=== PATIENT | female | born 1975 | race Caucasian/White ===

== ENCOUNTER 2018-03-14 08:45 | Day surgery (SDC) | payer BC, SELFPAY ==
[2018-03-14] VITALS (7 sets, daily range): BP systolic 126–157; BP diastolic 75–95; PULSE 82–92; RESP 16–18; TEMP 36.2–36.9; O2SAT 93–99; BMI 46.3
[2018-03-14] MEDS: Cefazolin 2 GM in 0.9% Normal Saline 100 ML IV (10:48)
--- NOTE | 2018-03-14 10:54 | PCM.DC.ORTHO ---
Discharge Diet: No Restrictions Discharge Activity: Use Crutches - if necessary Weight Bearing Status: Weight bearing as tolerated Keep extremity elevated above heart level: Right Leg Call your doctor if your incision/area has: Continuous Slow Oozing, Sudden Increased Bleeding, Increased Pain/ Swelling, Increased Redness, Foul Smelling Discharge Call your doctor if you observe: Fever of 101 or Higher, Coldness, Increased Pain, Numbness or Tingling, Change in Color Cleanse incision/area with: Keep Dressing Clean & Dry - do not remove Allergies/Adverse Reactions: Allergies methylprednisolone [From Medrol] Allergy (Verified 03/07/18 14:08) Other RAPID HR, DIZZINESS, HOARNESS, RED & SPLOTCHY Medications to take at Discharge Cetirizine HCl [Zyrtec] 10 mg PO DAILY 03/07/18 Fluoxetine [Prozac] 40 mg PO DAILY 03/07/18 Pregabalin [Lyrica] 50 mg PO BID 03/07/18 Valsartan [Diovan] 80 mg PO QHS 03/07/18 Hydrocodone Bitart/Apap 5-325 [[place] 5/325] 1 - 2 tablet PO Q6H PRN PRN 7 Days #56 tablet 03/14/18 The following prescriptions were given: Hydrocodone Bitart/Apap 5-325 [[place] 5/325] 1 - 2 tablet PO Q6H PRN PRN 7 Days #56 tablet PRN Reason: Mild-Moderate (pain scale 1-5) Please Follow Up With: Anton Alfonso DO When: as scheduled
--- NOTE | 2018-03-14 10:59 | DCINST_ITS ---
Discharge Diet: No Restrictions Discharge Activity: Use Crutches - if necessary Weight Bearing Status: Weight bearing as tolerated Keep extremity elevated above heart level: Right Leg Call your doctor if your incision/area has: Continuous Slow Oozing, Sudden Increased Bleeding, Increased Pain/ Swelling, Increased Redness, Foul Smelling Discharge Call your doctor if you observe: Fever of 101 or Higher, Coldness, Increased Pain, Numbness or Tingling, Change in Color Cleanse incision/area with: Keep Dressing Clean & Dry - do not remove Allergies/Adverse Reactions: Allergies methylprednisolone [From Medrol] Allergy (Verified 03/07/18 14:08) Other RAPID HR, DIZZINESS, HOARNESS, RED & SPLOTCHY Medications to take at Discharge Cetirizine HCl [Zyrtec] 10 mg PO DAILY 03/07/18 Fluoxetine [Prozac] 40 mg PO DAILY 03/07/18 Pregabalin [Lyrica] 50 mg PO BID 03/07/18 Valsartan [Diovan] 80 mg PO QHS 03/07/18 Hydrocodone Bitart/Apap 5-325 [[place] 5/325] 1 - 2 tablet PO Q6H PRN PRN 7 Days # 56 tablet 03/14/18 The following prescriptions were given: Hydrocodone Bitart/Apap 5-325 [[place] 5/325] 1 - 2 tablet PO Q6H PRN PRN 7 Days # 56 tablet PRN Reason: Mild-Moderate (pain scale 1-5) Please Follow Up With: Anton Alfonso DO When: as scheduled
--- NOTE | 2018-03-14 12:02 | PCM.OPRPT ---
Report of Operation Date of Procedure: 03/14/18 Pre-Operative Diagnosis: Recurrent prepatellar cyst right knee Post-Operative Diagnosis: Recurrent prepatellar cyst right knee Surgery/Procedure Performed:: Excision of prepatellar ganglion cyst right knee with application of incisional wound VAC right knee Description of Surgical Findings:: Large prepatellar ganglion cyst Type of Anesthesia:: General Anesthesiologist: Adam Fernandez Special Medications: None Specimen's removed: Cyst Estimated Blood Loss (mL): 50 Fluids Replaced: See anesthesia report Description of Procedure: Surgical indications: Marilu had a prepatellar cyst that was removed by me back in September. She had almost immediate return of this fluctuant mass. MRI does confirm the presence of a recurrent cyst. This is causing her substantial discomfort Procedure description: Marilu was greeted in the preoperative area her right knee was marked with surgical marker. Preoperative antibiotics were administered she was then taken or [address] in stable condition. After adequate anesthesia was obtained and airway secured the right knee was prepped and draped in usual sterile fashion. Surgical times performed surgery was commenced. Patient's previous incision site was identified inferior to the inferior pole the patella. This was extended proximally and distally and immediately encountered a cyst essentially right below the dermal layer. This is large and estimated to be approximately 8 cm in diameter and 5 cm in depth. The cyst was decompressed and the contents of which were clear watery fluid. Once this was complete I then excised the entire capsule. This actually propagated medially and laterally and all the way down to the anterior aspect of the tibia and patellar tendon. I did not identify any rent in the capsule nor a puncture in the capsule. I did use an aqua Manus to assist with control of bleeding and I did deflate the tourniquet as she was having a substantial amount of venous congestion. This point of visually inspected the capsule and again did not identify any abnormality in the capsule and I did use aqua Lamar for bleeding control as well as I treated the capsule with this to hopefully seal off any type of small leak that may be causing the recurrence. Once this was complete I did perform a layered closure with #1 Vicryl followed by 2 Vicryl and then 3-0 nylon in the skin. I then cleansed the skin placed a skin prep around the wound and applied a olimpia negative pressure bandage system. This was sealed with the supplied Tegaderm around the perimeter of the bandage. An Robert wrap was then gently applied to the knee in order to protect the dressing as well as to hold the battery-operated olimpia system. This point anesthesia was reversed and patient was taken to recovery room in stable condition. Postoperatively I would like the patient to maintain her knee straight in position until the dressing can be removed. We will plan on maintaining this dressing for approximately 7 days. She was provided with the additional dressing which may be applied in my office if this 1 loses its seal or fails - Admit VTE Documentation VTE Present on Admission: Yes VTE Mechan Device Prophylaxis: SCD's, Thigh High KAREN Lawton VTE Pharm Prophylaxis ordered?: Yes
[2018-03-14] MEDS: HYDROcodone Bitartrate/Apap 5/325 Tablet PO (13:37)
== END 2018-03-14 14:32 | disposition home or self-care (01) ==
LOC: SDC 08:46 → AC 08:51
PROVIDERS: Visit Provider Orthopaedic Surgery
PROC: (CPT 27340; principal; 2018-03-14 10:20)
DX: M67.461 Ganglion, right knee (principal); M70.71 Other bursitis of hip, right hip; M17.11 Unilateral primary osteoarthritis, right knee; I10 Essential (primary) hypertension; F41.9 Anxiety disorder, unspecified; E66.9 Obesity, unspecified; Z68.42 Body mass index [BMI] 45.0-49.9, adult; Z79.899 Other long term (current) drug therapy
CPT/HCPCS: 01320; 27339; J7120; J2405

== ENCOUNTER → 2024-11-30 | Outpatient (CLI) | payer OTHER, SELFPAY ==
--- NOTE | 2024-11-30 17:30 | CT_ITS ---
STUDY: CT CERVICAL SPINE WITH CONTRAST REASON FOR EXAM: Female, 49 years old. NECK PAIN RADIATION DOSAGE (If Supplied By Facility): CTDIvol = ( 19.06 ) mGy, DLP = ( 369.94 ) mGycm TECHNIQUE: High resolution transaxial imaging was performed following intravenous administration of IV 100mL Isovue-370. Sagittal and coronal images were reconstructed. Individualized dose optimization techniques were used for this CT. COMPARISON: October 12, 2024 FINDINGS: Normal craniovertebral junction. Normal anterior atlantoaxial articulation. Normal odontoid process. Normal cervical lordosis. Normal vertebral bodies and posterior osseous elements. C2-3: Normal endplates. Normal disc height and morphology. Normal central canal and intervertebral neuroforamina. C3-4: Mild anterior endplate spurring. Narrowed disc space with minor endplate spurring. Normal central canal and intervertebral neuroforamina. C4-5: Normal endplates. Normal disc height and morphology. Normal central canal and intervertebral neuroforamina. C5-6: Postop change status post anterior cervical fusion with disc spacer placement. Normal central canal and intervertebral neuroforamina. C6-7: Postop change status post anterior cervical fusion and disc spacer placement. Normal central canal. Mild bilateral neural foraminal stenosis secondary to bony hypertrophy. There is deformity of the right cervical spine at C7 possibly on the basis of old trauma not changed since prior exam C7-T1: Normal endplates. Normal disc height and morphology. Normal central canal and intervertebral neuroforamina. Normal visualized soft tissue structures. CT/Spine Cervical WITH Contrast IMPRESSION: Spondylosis and postsurgical changes at C5-6 and C6-7. No acute fracture or other significant bony pathology Deformity of the right C7 screw consistent with old trauma unchanged since previous study Electronically Signed: Samuel Monteiro MD at 17:48 EST ,
[2024-11-30 18:01] LABS: CREATININE FINGERSTICK < 1.0 mg/dL (0.55-1.02); EGFR FINGERSTICK > 60.0000 mL/min (>60)
== END | disposition home or self-care (01) ==
LOC: CT 17:28
PROVIDERS: PCP Family Medicine; Referring Provider Clinical Nurse Specialist Adult Health; Visit Provider Clinical Nurse Specialist Adult Health
DX: M54.2 Cervicalgia (principal)
CPT/HCPCS: 72126; Q9967

== ENCOUNTER → 2025-01-15 | Outpatient (CLI) | payer OTHER, SELFPAY ==
--- NOTE | 2025-01-15 08:42 | MRI_ITS ---
PROCEDURE: SPINE CERVICAL (ROUTINE) REASON FOR EXAM: Pain. TECHNIQUE: Cervical spine MRI without intravenous gadolinium-based contrast. COMPARISON: CT of the cervical spine on November 30, 2024 FINDINGS: Vertebrae: Cervical vertebral body heights are preserved. Bone marrow signal is unremarkable. Patient is status post anterior cervical discectomy and fusion from C5 through C7. Alignment: Normal. No spondylolisthesis. Spinal Cord: Cervical spinal cord is of normal size and signal intensities. Structures at the foramen magnum are unremarkable. C2-3: Minimal central disc osteophyte complex without central canal or foraminal stenosis. C3-4: Minimal disc osteophyte complex without central canal or foraminal stenosis. C4-5: Mild disc osteophyte complex without central canal stenosis. Mild left foraminal stenosis.. C5-6: Disc osteophyte complex with mild flattening of the ventral thecal sac. Patent neural foramina. C6-7: Disc osteophyte complex with facet and uncovertebral hypertrophy. Mild left foraminal stenosis. C7-T1: Mild disc osteophyte complex without central canal or foraminal stenosis. MRI/Spine Cervical (Routine) IMPRESSION: MULTILEVEL DEGENERATIVE CHANGES IN THE LUMBAR SPINE WITH MILD LEFT FORAMINAL ST ENOSIS AT C4-C5 AND C6-C7. STATUS POST ANTERIOR CERVICAL DISCECTOMY AND FUSION FROM C5 THROUGH C7. Reading Location: [id number]
== END | disposition home or self-care (01) ==
LOC: MRI 15:36
PROVIDERS: PCP Family Medicine; Referring Provider Orthopaedic Surgery Orthopaedic Surgery of the Spine; Visit Provider Orthopaedic Surgery Orthopaedic Surgery of the Spine
DX: M54.2 Cervicalgia (principal)
CPT/HCPCS: 72141

== ENCOUNTER 2025-04-02 16:38 | Observation (INO) | payer MEDICARE, OTHER, SELFPAY ==
--- NOTE | 2025-03-27 08:56 | EKG12_ITS ---
Test Reason : PREOP Blood Pressure : */* mmHG Vent. Rate : 89 BPM Atrial Rate : 89 BPM P-R Int : 160 ms QRS Dur : 84 ms QT Int : 352 ms P-R-T Axes : 30 8 22 degrees QTcB Int : 428 ms Normal sinus rhythm Nonspecific T wave abnormality Abnormal ECG No previous ECGs available Confirmed by MART CHAWLA, TALIA ([id number]), assistant production editor THONY VALENTINE ([id number]) on 03/28/2025 1:14:12 PM Referred By: Tony Ignacio Confirmed By: TALIA CEVALLOS MD
[2025-03-27 09:58] LABS: Absolute Lymphocyte Count 1.05 X10^3/uL (0.83-4.51); Absolute Neutrophil Count 3.7 X10^3/uL (2.0-7.7); Basophil# 0.03 X10^3/uL; Basophil% 0.6 % (0-1); Eosinophil# 0.02 X10^3/uL; Eosinophils% 0.4 % (0-5); Hematocrit 36.7 % (37-47); Hemoglobin 12.8 g/dL (12.0-15.0); Lymphocyte # 1.05 X10^3/ul (0.83-4.51); Lymphocyte % 20.4 % (19-41); Mean Corp Hgb Conc 34.9 g/dL (32-36); Mean Corpuscular Volume 85.9 fL (81-99); Mean Platelet Vol. 8.4 fl (6.2-12.0); Monocyte# 0.35 X10^3/uL; Monocyte% 6.8 % (0-10); NRBC Flagged by Analyzer 0 % (0-5); Neutrophil # 3.69 X10^3/uL (2.7-7.7); Neutrophil % 71.6 % (47-70); Platelet Count 262 K/mm3 (150-450); RBC Distribution Width CV 11.7 % (11.6-14.6); RBC Distribution Width SD 36.8 fl (35.1-43.9); Red Blood Count 4.27 M/mm3 (4.2-5.4); White Blood Count 5.2 K/mm3 (4.4-11.0)
[2025-03-27 10:48] LABS: Hepatitis B Surface Antibody Nonreactive; Hepatitis C Antibody Nonreactive (Nonreactive)
[2025-03-27 11:04] LABS: EST Glomerular Filtration Rate 107 (>60); HIV Nonreactive (Nonreactive)
[2025-03-27 11:07] LABS: Anion Gap 14 (5-15); BUN 17 mg/dL (4-19); BUN/Creat Ratio 24.5 RATIO (10-20); Calcium,Total 9.7 mg/dL (7.6-11.0); Carbon Dioxide 23.3 mmol/L (21.0-32.0); Chloride 105 mmol/L (98-108); Creatinine, Serum 0.67 mg/dL (0.70-1.20); Glucose 97 mg/dL (70-99); Potassium 3.5 mmol/L (3.3-5.1); Sodium Level 142 mmol/L (133-145)
--- NOTE | 2025-03-27 16:19 | PAT.ANESEVAL ---
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 When Was Last Pacemaker Check QUESTION #4 FULL TEXT: You/Your Family Experience fever (hyperthermia) with Anesthesia Last Oral Intake Last Oral intake: Last Oral Intake NPO since Meds taken in AM with sips of water? 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 - office supervisor Female Yes 03/21/25 08:53 HX of Motion Sickness No 03/21/25 08:53 HX of N/V After Surgery No 03/21/25 08:53 Non-Smoker Yes 03/21/25 08:53 Duration of Surgery greater Yes 03/21/25 08:53 than 60 minutes Number of Risk Factors 3 03/21/25 08:53 PONV Score Moderate Risk 03/21/25 08:53 Height & Weight Height & Weight: Anesthesia: Height & Weight Height 4 ft 11 in 12/14/24 10:19 Respiratory Assessment Respiratory Assessment - office supervisor: Respiratory Tract Infection Hx - office supervisor Hx Respiratory Tract Infection No 03/21/25 08:53 STOP Sleep Apnea STOP Sleep Apnea - office supervisor: STOP Sleep Apnea - office supervisor Hx Hypertension No 03/21/25 08:53 Hx Sleep Apnea No 03/21/25 08:53 CPAP No 03/14/18 12:02 BIPAP Do you snore loudly (louder No 03/21/25 08:53 than talking or can be heard Do you often feel tired/ No 03/21/25 08:53 fatigued/ sleepy during daytime? Has anyone observed you stop No 03/21/25 08:53 breathing during sleep? STOP Results Negative 03/21/25 08:53 QUESTION #5 FULL TEXT : Do you snore loudly (louder than talking or can be heard through closed doors)? Tobacco Use History Tobacco Use History - office supervisor: Tobacco Use History - office supervisor Tobacco Use Smoking Status Never smoker 03/21/25 08:53 Hx Tobacco Use No 03/21/25 08:53 Years Smoking Packs Smoked per Day Smoking Cessation Date was within the last 15 years Hx Smoking Cessation Date Hx Smoking Cessation Counseling Hematologic Medial History Hematologic Hx - office supervisor: Hematologic Medical Hx - [place] Hx of Blood Transfusion Yes 03/21/25 08:53 Hx of Transfusion in last 3 No 03/21/25 08:53 Months Date of Last Transfusion (if within last 3 months) Ever experience any problems No 03/21/25 08:53 with transfusion(s)? Specify any problems Hx of Preganancy in last 3 No 03/21/25 08:53 Months Nurse Filling Out Transfusion [facility] 03/21/25 08:53 & Questions: Date: 03/21/25 03/21/25 08:53 Time: 09:00 03/21/25 08:53 Patient unable to answer at this time (ie. confused, unrespo /Reproduction History /Reproductive History - office supervisor: /Reproductive Hx- office supervisor Hx Now No 03/21/25 08:53 Gestational Age (in weeks): EDC: Hx Hx Para Hx Section SAB No 03/21/25 08:53 PFSH Medical History Post-menopausal Wears glasses Anxiety Non-smoker Injury of neck Irritable bowel syndrome Fibromyalgia Arthritis Degenerative disc disease Hypertension Home Medications ?Medication ?Instructions ?Recorded ?Last Taken ?Type cetirizine 10 mg tablet (Zyrtec) 10 mg PO DAILY ALLERGIES 03/07/18 03/13/18 History fluoxetine 20 mg capsule 40 mg PO DAILY MOOD 03/07/18 03/13/18 History dicyclomine 10 mg capsule 20 mg PO QDAY PAIN 12/14/24 Unknown History metformin 500 mg tablet 1,000 mg PO DAILY Weight 12/14/24 Unknown History semaglutide (weight loss) 1 mg/0.5 1 mg subcut QWEEK Weight loss 12/14/24 03/15/25 History mL subcutaneous pen injector Allergy/AdvReac Type Severity Reaction Status Date / Time methylprednisolone (From Allergy Other Verified 03/27/25 09:54 Medrol) Family History Mother Diabetes Father Colon cancer COPD (chronic obstructive pulmonary disease) Surgical History History of hernia surgery History of carpal tunnel release Fusion of lumbar spine Cervical vertebral fusion History of left knee replacement Social History Smoking Status: Never smoker alcohol intake: never substance use type: does not use additional social history: Does not use aspirin. Takes ibuprofen most days. Audit: Pertinent Findings Pertinent Findings EKG Perinent findings: March 27, 2025. Normal sinus rhythm. Nonspecific T wave abnormality. Recommendation Anesthesia Recommendation Anesthesia recommendation: OPTIMIZED for anesthesia
[2025-03-28 05:07] LABS: Hepatitis A AB, Total Negative (Negative)
[2025-04-02] VITALS (14 sets, daily range): BP systolic 123–162; BP diastolic 74–96; PULSE 91–110; RESP 12–18; TEMP 36.1–37.1; O2SAT 97–100; BMI 35.2
[2025-04-02] MEDS: Acetaminophen 500 MG Tablet 1000 MG PO (11:32)
[2025-04-02] MEDS: Magnesium 1 GM over 15 mins IV (11:32)
[2025-04-02] MEDS: Lactated Ringers 1,000 ML 15 ML IV ×2 (11:32→17:14)
--- NOTE | 2025-04-02 11:44 | PRE.ANES_ITS ---
ASA Classification* ASA Classification ASA Classification: 2 (anxiety, IBS, arthritis ) Assessment & Plan Anesthesia* Anesthesia Assessment Anesthesia Assessment: Discussed sedation and/or anesthesia options, risks, benefits, and alternatives with patient/parents/legal guardian/POA. Questions invited. The patient/parents/legal guardian/POA seems to understand and agrees to proceed with anesthesia plan. Reviewed the physical assessment, medical history, allergy history and patient home medications list prior to surgery/procedure/anesthetic and documented any changes. Performed airway and anesthesia risk assessments. Anesthesia Type Anesthesia Type: General History Source History Obtained from:: Patient and Chart Anesthesia Focused Assessment* Temperature: 98.0 F Pulse Rate: 91 Blood Pressure: 123/74 Respiratory Rate: 16 Pulse Ox: 99 Oxygen Delivery Method: Room Air Airway Assessment Mouth opens: >3 cm Mallampati Score: II Teeth Condition: Intact Neck Range of motion (ROM): Full ROM Focused Labs Anesthesia Preop lab: CBC WBC 5.2 K/mm3 (4.4-11.0) 03/27/25 08:50 03/27/25 RBC 4.27 M/mm3 (4.2-5.4) 03/27/25 08:50 03/27/25 Hgb 12.8 g/dL (12.0-15.0) 03/27/25 08:50 03/27/25 Hct 36.7 % (37-47) L 03/27/25 08:50 03/27/25 Plt Count 262 K/mm3 (150-450) 03/27/25 08:50 03/27/25 CHEMISTRY Potassium 3.5 mmol/L (3.3-5.1) 03/27/25 08:50 03/27/25 Sodium 142 mmol/L (133-145) 03/27/25 08:50 03/27/25 Magnesium 2.0 mg/dL (1.5-2.2) 03/27/25 08:50 03/27/25 BUN 17 mg/dL (4-19) 03/27/25 08:50 03/27/25 Creatinine 0.67 mg/dL (0.70-1.20) L 03/27/25 08:50 Glucose 97 mg/dL (70-99) 03/27/25 08:50 03/27/25 COAG Pre-Assessment Diagnosis/Proposed Procedure Planned Operative Procedure(s): ANTERIOR CEVICAL FUSION C3-C4, C4-C5, POSSIBLE REMOVAL OF HARDWARE Anesthesia History 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 When Was Last Pacemaker Check QUESTION #4 FULL TEXT: You/Your Family Experience fever (hyperthermia) with Anesthesia Last Oral Intake Last Oral intake: Last Oral Intake NPO since 00:00 04/02/25 11:19 Meds taken in AM with sips of No 04/02/25 11:19 water? 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 Female Yes 03/21/25 08:53 HX of Motion Sickness No 03/21/25 08:53 HX of N/V After Surgery No 03/21/25 08:53 Non-Smoker Yes 03/21/25 08:53 Duration of Surgery greater Yes 03/21/25 08:53 than 60 minutes Number of Risk Factors 3 03/21/25 08:53 PONV Score Moderate Risk 03/21/25 08:53 Height & Weight Height & Weight: Anesthesia: Height & Weight Height 4 ft 11 in 04/02/25 11:19 Weight: 79.197 kg 04/02/25 11:19 Body Mass Index (BMI) 35.2 04/02/25 11:19 Respiratory Assessment Respiratory Assessment - securities lending trader: Respiratory Tract Infection Hx - securities lending trader Hx Respiratory Tract Infection No 03/21/25 08:53 STOP Sleep Apnea STOP Sleep Apnea - securities lending trader: STOP Sleep Apnea - securities lending trader Hx Hypertension No 03/21/25 08:53 Hx Sleep Apnea No 03/21/25 08:53 CPAP No 03/14/18 12:02 BIPAP Do you snore loudly (louder No 03/21/25 08:53 than talking or can be heard Do you often feel tired/ No 03/21/25 08:53 fatigued/ sleepy during daytime? Has anyone observed you stop No 03/21/25 08:53 breathing during sleep? STOP Results Negative 03/21/25 08:53 QUESTION #5 FULL TEXT : Do you snore loudly (louder than talking or can be heard through closed doors)? 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 Specify any problems Hx of Preganancy in last 3 No 03/21/25 08:53 Months Nurse Filling Out Transfusion [place] 03/21/25 08:53 & Questions: Date: 03/21/25 03/21/25 08:53 Time: 09:00 03/21/25 08:53 Patient unable to answer at this time (ie. confused, unrespo /Reproduction History /Reproductive History - securities lending trader: /Reproductive Hx- securities lending trader Hx Now No 03/21/25 08:53 Gestational Age (in weeks): EDC: Hx Hx Para Hx Section SAB No 03/21/25 08:53 Active Medications Active Medications: Current Medications Generic Name Dose Route Start Last Admin Trade Name Freq PRN Reason Stop Dose Admin Acetaminophen 1,000 mg 04/02/25 13:15 04/02/25 11:32 Acetaminophen 500 Mg Tablet PO 04/02/25 13:16 1,000 mg PREOP ONE Administration Cefazolin Sodium 2 gm/ Sodium 110 mls @ 150 mls/hr 04/02/25 13:15 Chloride IV 04/02/25 13:58 INTRAOP ONE Tranexamic Acid 1,000 mg/ 110 mls @ 440 mls/hr 04/02/25 13:15 Sodium Chloride IV 04/02/25 13:29 X1 ONE Tranexamic Acid 1,000 mg/ 110 mls @ 440 mls/hr 04/02/25 13:15 Sodium Chloride IV 04/02/25 13:29 X1 ONE Magnesium Sulfate 1 gm/ 102 mls @ 408 mls/hr 04/02/25 13:15 04/02/25 11:32 Dextrose IV 04/02/25 13:29 408 mls/hr INTRAOP ONE Administration Lactated Ringer's 1,000 mls @ 15 mls/hr 04/02/25 11:15 04/02/25 11:32 IV 15 mls/hr .Q48H HERMINIA Administration Insulin Human Lispro 1 - 6 unit 04/02/25 13:15 Insulin Lispro 100 Unit/Ml Insuln.Pen SC 04/02/25 18:00 Q4H PRN PRN BG>/= 180, SEE PROTOCOL Protocol PFSH Medical History Post-menopausal Wears glasses Anxiety Non-smoker Injury of neck Irritable bowel syndrome Fibromyalgia Arthritis Degenerative disc disease Hypertension Home Medications ?Medication ?Instructions ?Recorded ?Last Taken ?Type cetirizine 10 mg tablet (Zyrtec) 10 mg PO DAILY ALLERG IES 03/07/18 03/13/18 History fluoxetine 20 mg capsule 40 mg PO DAILY MOOD 03/07/18 03/13/18 History dicyclomine 10 mg capsule 20 mg PO QDAY PAIN 12/14/24 Unknown History metformin 500 mg tablet 1,000 mg PO DAILY Weight Unknown History semaglutide (weight loss) 1 mg/0.5 1 mg subcut QWEEK W eight loss 12/14/24 03/15/25 History mL subcutaneous pen injector Allergy/AdvReac Type Severity Reaction Status Date / Time methylprednisolone (From Allergy Other Verified 04/02/25 11:17 Medrol) Family History Mother Diabetes Father Colon cancer COPD (chronic obstructive pulmonary disease) Surgical History History of hernia surgery History of carpal tunnel release Fusion of lumbar spine Cervical vertebral fusion History of left knee replacement Social History Smoking Status: Never smoker alcohol intake: never substance use type: does not use additional social history: Does not use aspirin. Takes ibuprofen most days. Review of Systems (Anesthesia) ROS Narrative System reviewed and no additional complaints, except as documented.
[2025-04-02 11:54] LABS: Bedside Glucose 77 mg/dL (74-106)
--- NOTE | 2025-04-02 13:17 | PCM.HP.BLA ---
History and Physical Date of Admission: 04/02/25 MR#: [id number] Acct: [id number] Name: DEBBI MCCONNELL Rep #: [id number] : 1975 Provider: Dr. Tony Ignacio MD Age/Sex: 50/F Location: [facility] [place].[facility] Status: Signed Intake Vital Signs 12/14/2509:19 Height 4 ft 11 in Intake Visit Reasons: cervical spine Chief Complaint: pre-op Allergies methylprednisolone (From Medrol) Allergy (Verified 03/27/25 09:54) Other Medications ?Medication ?Instructions ?Recorded ?Confirmed ?Type cetirizine 10 mg tablet (Zyrtec) 10 mg PO DAILY ALLERGIES 03/07/18 03/27/25 History fluoxetine 20 mg capsule 40 mg PO DAILY MOOD 03/07/18 03/27/25 History dicyclomine 10 mg capsule 20 mg PO QDAY PAIN 12/14/24 03/27/25 History metformin 500 mg tablet 1,000 mg PO DAILY Weight 12/14/24 03/27/25 History semaglutide (weight loss) 1 mg/0.5 1 mg subcut QWEEK Weight loss 12/14/24 03/27/25 History mL subcutaneous pen injector [facility] Medical History Post-menopausal Wears glasses Anxiety Non-smoker Injury of neck Irritable bowel syndrome Fibromyalgia Arthritis Degenerative disc disease Hypertension Surgical History History of hernia surgery History of carpal tunnel release Fusion of lumbar spine Cervical vertebral fusion History of left knee replacement Family History Mother DiabetesFather Colon cancer COPD (chronic obstructive pulmonary disease) Social History Smoking Status: Never smoker alcohol intake: never substance use type: does not use additional social history: Does not use aspirin. Takes ibuprofen most days. HPI cervical spine Details: This documentation accurately reflects the service provided and the decisions made by me, Dr. Tony Ignacio MD 03/27/25 0949. Part of today?s visit was documented by Mayra LAMAR, acting as scribe. DEBBI MCCONNELL is a 50 year old F here today for pre-op cervical spine, dos: 04/02/25. She continues to have neck pain with bilateral upper extremity radiation. Her pain along the right trapezius and shoulder has increased since last seen by me. 02/16/25: DEBBI MCCONNELL is a 50 year old F here today for cervical spine follow-up. Patient is here today wanting to talk about next steps for the cervical spine pain she is dealing with. Patient denies any recent injections to the cervical spine or the shoulder that has been bothering her. She states she has had injections several times in the past in other body parts and they really never beneficial to her and she does not wish to proceed with those. She states the cervical spine pain has gotten a little bit worse. She states she is having an increase in numbness in her left arm.. She states this goes all the way down her arm and it is an everyday occurrence at this point. She denies any change in the left shoulder pain that was bothering her. She states she is starting to get more pain into the right shoulder now. She has not been to physical therapy. The right pain into the shoulder is only on the top of the shoulder, she denies any pain going down into the arm. She denies any trouble with swallowing or speech after her prior cervical spine surgeries. Non-diabetic, no heart/lung problems. She had a lumbar spine injection with Dr. Shen in September 2024. Been quite a while since she has done physical therapy. She occasionally notices some issues with balance. No history of stroke. 01/25/2025: DEBBI MCCONNELL is a 50 year old F here today for MRI Cervical Spine follow-up. Reports no changes from previous except pain now across b/l shoulder starting about a week from last visit. Rates pain 5 out of ten today. 12/14/24: neck pain. Hx cervical fusion ~2014 through [facility]. Fell in 08/2024. Increased neck pain 09/2024. Cervical spine CT performed at [facility] 11/30/24. Neck pain radiated to left shoulder, arm and hand. Pain recently radiating from neck to right shoulder. Occ tingling in fingers in left hand. Left arm and hand weakness. Received neck injection 09/[address] Shen, ineffective. Dr. Shen continues to follow. No recent PT. Heavy lifting or positioning could exacerbate pain. Ice, tylenol, and ibuprofen helpful short term. Received disability for back problems. Major balance problems prior to surgery. After surgery neck pain, headaches and balance problems improved. Followed-up regularly after surgery. No problems until fall 2023, 09/23/2024 or so. Denies hitting head/neck. Whole right side painful. Starting to get pain on the right. Pain starts in the neck, top of shoulder and down the arm. Pain into middle fingers. RHD. Weakness in the left hand, dropping items. Does not work. Denies trouble with writing, typing in the right hand. Increase balance problems within the last couple weeks. Non-diabetic, no blood thinners, denies stroke. No recent MRI. Denies weakness in the legs. Another surgery after the fusion, about a few years, that went in the posterior cervical spine to clean out but patient does not remember what the surgery was or what exactly it was for. Cannot remember her symptoms she was having at the time. Ortho Exam General General: Yes no acute distress Neurologic: Yes alert and Yes oriented x3 Psychologic: Yes reasonable and appropriate Spine SPINE TESTING CERVICAL THORACIC LUMBAR Musculoskeletal Strength 0=absent - 5=normal Details: Exam of the neck shows right-sided ACDF incision well-healed. There is also an apparent right sided transverse posterior cervical incision of unknown surgery. She says that the surgery was done a few years after the ACDF surgery. Neurologic valuation of upper extremity shows grade 4 power in the left wrist extension elbow flexion and shoulder abduction. Aureliano is positive on the left. Romberg's is positive. Tandem gait shows mild imbalance. There is no hyperreflexia lower extremities. Coding Level of Care Code Off vis,est,level 4 Diagnoses S/P cervical spinal fusion Z98.1 Acute pain of left shoulder M25.512 Chronicity: acute Cervical myelopathy with cervical radiculopathy G95.9; M54.12 Time Spent (min) 35 Assessment and Plan Assessment and Plan (1) S/P cervical spinal fusion: Status: Acute (2) Left shoulder pain: Status: Acute Qualifiers: Chronicity: acute Qualified Code(s): M25.512 - Pain in left shoulder (3) Cervical myelopathy with cervical radiculopathy: Status: Acute Plan Reviewed x-rays and recent CT of cervical spine, I also reviewed dynamic x-rays done today in the clinic. These show C5-7 ACDF with C7 screw fracture which is intraosseous and not causing any instability on dynamic views. CT scan confirms good fusion at C5-6, and possible fibrous fusion or pseudoarthrosis at C6-7. No obvious fractures. Unclear as to what surgery was done posteriorly, but most likely was right C6-7 laminoforaminotomy. MRI shows adjacent segment degeneration at C3-4 and C4-5. C3-4 shows right foraminal stenosis and C4-5 shows left foraminal stenosis. No significant cord compression. Explained to her the imaging findings in detail. Patient has developed hyperreflexia and radicular pain arising from the cervical spine suggestive of cervical myeloradiculopathy. She however does not have any significant cord compression on the new MRI, suggesting that this are residual myelopathic symptoms from previous surgery. She does however significant radiculopathy from C3-4 and C4-5 disc degeneration and foraminal stenosis. She also has significant left shoulder pain with range of motion. Explained to patient that if she were to proceed with another cervical spine surgical procedure there will typically be an increase in swallowing and speech issues. Recommend patient see an ENT doctor to make sure her vocal cords are moving equally to help decide side of approach. Since she is having more of a nerve root pressure rather than spinal cord pressure it is going to be more beneficial to go in from the front of the cervical spine rather than the back. We will address the top 2 levels with the surgical procedure. Spoke to patient about the pros, cons, risks and benefits of the surgical procedure. Postoperative restrictions were discussed. Explained that the balance issues will not change since she does not have any spinal cord pressure. Surgery will be C3-5 ACDF with possible removal of hardware. Risks include but are not limited to infection, bleeding, injury to nerves and vessels, hematoma formation, need for further surgery, dysphagia, dysphonia, recurrent laryngeal nerve injury, Herve syndrome, persistent dysphagia, persistent pain, persistent weakness and numbness, spinal cord injury, nerve root injury, DVT, pulm embolism, pneumonia, atelectasis, hardware failure, pseudoarthrosis, adjacent segment degeneration. Patient understands and agrees to proceed with surgery. Consent was signed.
--- NOTE | 2025-04-02 13:55 | RAD_ITS ---
PROCEDURE: CERV SPINE 2 OR 3 VIEWS 04/02/2025 REASON FOR EXAM: ANTERIOR CERVICAL DISC FUSION, C3-4, C4-5 TECHNIQUE: Fluoroscopy with 7 spot images COMPARISON: 12/14/2024 FINDINGS: Fluoroscopy time 10.9 seconds Cumulative dose 1.29 mGy C3-4 and C4-5 intervertebral disc spacers with anterior plate and screws placed C3 and C5 appears anatomic. The left-sided screw at C5 previous hardware has been removed. Anterior cervical disc fusion C5 through C7. May refer to operative report for further detail. RAD/Cerv Spine 2 or 3 Views IMPRESSION: Fluoroscopy during anterior cervical disc fusion with intervertebral disc space rs as above. Reading Location: [id number]
[2025-04-02] MEDS: Cefazolin 2 GM in 0.9% Normal Saline (100mL Bag) 100 ML IV ×2 (14:08→21:49)
[2025-04-02] MEDS: TRANEXAMIC ACID 1,000 MG in 0.9% Normal Saline (100mL Bag) 100 ML 440 MG IV ×2 (14:13→16:11)
--- NOTE | 2025-04-02 16:45 | PCM.OPRPT ---
Procedures Musculoskeletal [id number]-[id number]: Other Procedure See Report Operative Report (Standard) Operative Information Date of Procedure: 04/02/25 Pre-Operative Diagnosis: C3-5 disc degeneration, radiculopathy, prior C5-7 ACDF Post-Operative Diagnosis: Same Surgery/Procedure Performed: C3-5 ACDF, partial removal of previous hardware predictive maintenance technician: Yes Seafood Team Member: Joann Damon Tasks completed by cutting table operator first: Closing, Removing tissue, Implanting device, Hemostasis: Electrocautery and Retracting Type of Anesthesia: General RN Documented Start/Stop Times: Operation Date: 04/02/25 13:15 Case Time Into Pre-Op 04/02/25 11:03 Out of Pre-Op 04/02/25 13:45 Anesthesia Start 04/02/25 13:47 Into Room 04/02/25 13:47 Procedure Start 04/02/25 14:17 Procedure End 04/02/25 16:30 Anesthesia End 04/02/25 16:45 Out of Room 04/02/25 16:45 Procedure Start Time: 14:17 Procedure Stop Time: 16:30 Select all DRAINS/GRAFTS/IMPLANTS that apply: Drains Drain details: [place] , Graft Graft details: Structural allograft cortical cancellous strut, DBX and Implanted device Implanted device details: Medtronic [place] Elite plate instrumentation Estimated Blood Loss: 50 cc Specimen collected: No Description of surgery: Preoperative diagnosis: C3-5 disc degeneration with foraminal stenosis, radiculopathy, prior C5-7 ACDF Postoperative diagnosis: Same Name of procedure: C3-5 anterior cervical discectomy and fusion with plate instrumentation - Anterior cervical fusion C3-4, CPT code 40355 - Anterior plate instrumentation C3-5, CPT code 91600/59 - Anterior cervical fusion C4-5, CPT code 25908/51 -Partial removal of previous hardware, CPT code 08187, modifier 52 - C3-4 structural allograft bone with DBX, CPT code 80239 - C4-5 structural allograft bone with DBX, CPT code 89779 Attending surgeon: Tony Ignacio M.D. Anesthesia: Gen. endotracheal Estimated blood loss: 50 mL Complications: None Instrumentation used: Medtronic [place] Elite plate, LASR corticocancellous block Indications: The patient is a pleasant 50-year-old lady who presented with neck pain, bilateral upper extremity radiating pain, weakness. MRI showed adjacent segment degeneration at C3-4 C4-5 with foraminal stenosis, prior C5-7 ACDF. After prolonged course of nonsurgical treatment, the patient requested surgical treatment. All risks and benefits of the procedure were explained to the patient. The risks include but are not limited to infection, bleeding, injury to nerves and vessels, vertebral artery injury, spinal cord injury, paralysis, vocal cord paralysis, injury to esophagus, pseudoarthrosis, need for further procedures, adjacent segment degeneration. Procedure: The patient was identified in the preoperative suite using unique patient identifiers. Skin was marked consent was taken and all questions were answered. The patient was then brought back to the operative room and a timeout was performed. General endotracheal anesthesia was given. Intraoperative neuro monitoring leads were applied. The patient was carefully positioned supine on a regular OR table. A lateral view with a C-arm was done to identify the level and to define the incision. The anterior neck was then prepped and draped in the usual fashion. A final timeout was then performed. A transverse skin incision was taken to the left of midline. Subcutaneous tissue was then divided with Bovie. Platysma was identified and cut along the incision with scissors. The fascial interval between the sternocleidomastoid and the larynx was developed. Omohyoid was identified and retracted. The esophagus with the larynx was retracted medially to reach the prevertebral fascia. Significant scarring in front of the previous plate was observed. Upper screws of the previous plate were exposed. Left C5 screw from the previous plate was removed and Baltimore Pin Was Placed. Decision was made to not remove the entire plate, as there was adequate C5 vertebral body available for a new plate above. Longus coli muscle was elevated on both sides at and above and below C3-5 discs. Self-retaining retractors were then placed. A long handle knife was then used to perform annulotomy at C4-5. Disc fragments were removed with the pituitary. Baltimore pins were placed in C4 and C5 for disc distraction. Curettes and bur was utilized to remove cartilage from the endplates. Discectomy was performed laterally up to the uncovertebral joints. Posterior osteophytes were thinned down with the bur and adequate decompression in the central and foraminal areas were performed and PLL was thinned out. Once the disc space was prepared, trials of various sizes were utilized. Thorough irrigation was given. 6 mm LASR cortical cancellous allograft bone large footprint was then fashioned in such a way that concavities were burred out inferiorly and superiorly and half cc of DBX (demineralized bone matrix) was squeezed into the cancellous portion. The graft was then inserted into the C4-5 disc space. The retractors were then repositioned and the procedure was repeated for C3-4 discs with complete discectomy. Graft size was 6 mm at with large footprint at C3-4. The grafts were found to be in good apposition with good pullout strength. A 37 mm Medtronic [place] Elite plate was then fixed to C3-5 with 14 mm screws. The plate was positioned and fixed just above the previous C5-7 plate. A lateral x-ray was then taken to check the length of the screws. Both AP and lateral x-rays showed good positioning of plate and screws. The locking mechanism over the screw heads was then turned. Thorough irrigation was again given. Hemostasis was achieved. A [place] drain was then inserted. Closure was done with 3-0 Vicryl for the platysma and subcutaneous tissue layers and 4-0 Monocryl for the skin. Closure was done around the drain. Steri-Strips were applied and dressing was done with 4 x 4 gauze and Tegaderm. A cervical collar was then applied. The patient was then woken up from anesthesia extubated and taken to PACU in stable condition. From here, the patient will be transitioned to the floor. Intraoperative neuro monitoring was performed throughout this procedure. Motor evoked potentials were run periodically. All potentials remained at baseline throughout the procedure. I was present for the entire surgery and performed the surgery myself. Automatic Chief Joann Damon PA-C. My physician hospital aides and assistants teacher was a vital part of this case. They were important in appropriate retraction during the case, and protection of soft tissues during the procedure. Their intimate knowledge of the case and my steps aided in safe and expedient completion of the procedure as well as appropriate position of the patient during the surgery. They were also vital in assisting with closure under my direct supervision. Surgical Findings: See operative note Complications Complications: No
--- NOTE | 2025-04-02 18:33 | PCM.PN.HOSP ---
Reason for Visit Reason for Visit: Diagnoses Encounter for other preprocedural examination (04/02/25) Subjective Subjective Pt is a 50y/o female w/ hx of IBS, cervical spinal fusion and anxiety presented to [facility] ED for C3 through 5 ACDF and partial removal of previous hardware with Dr. Ignacio. Hospitalist consulted for postoperative medical management. Patient evaluated postoperatively, she reports she is sore but has no other acute or focal complaints Objective Data Objective Data Vital Signs: Vital Signs Temp Pulse Resp BP Pulse Ox O2 Del Method O2 Flow Rate 98.4 F 102 H 16 147/85 H 100 Nasal Cannula 4 04/02/25 18:26 04/02/25 18:26 04/02/25 18:26 04/02/25 18:26 04/02/25 18:26 04/02/25 18:26 04/02/25 18:26 Oxygen Flow Rate (L/min) 4 Oxygen Delivery Method Nasal Cannula Weight: 79.197 kg Body Mass Index (BMI) 35.2 Intake & Output: Intake and Output for Last 24 Hours 03/31/25 04/01/25 04/02/25 23:59 23:59 23:59 Intake Total 2220 / 2220 Balance 2220 / 2220 Lab / Micro Data 03/27/25 08:50 03/27/25 08:50 Labs: Laboratory Results - last 24 hr 04/02/25 11:27: POC Glucose 77 Micro: Microbiology 03/27/25 08:50 Swab (Method) Nasal Screen MRSA/MSSA - Final Physical Exam Narrative General: Alert, oriented, no apparent distress HEENT: Atraumatic, normocephalic Eyes: extraocular movements grossly intact Neck: Supple Respiratory: normal respiratory effort Cardiovascular: Regular rate and rhythm GI: nondistended Extremities: Moving extremities in bed Neuro: No overt focal neurological deficits but patient is in c-collar Psych: Cooperative Assessment & Plan Assessment/Plan (1) Cervical myelopathy with cervical radiculopathy: PLAN: Plan # Anxiety -Continue home medications #Obesity - On daily metformin, will hold postoperatively while admitted, can resume on discharge # 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 Ignacio 04/02/25 - Postoperative/pain management per primary -PT/OT #DVT ppx: Timing and agent at discretion of primary Alisia Madison MD Time spent in the patient's overall evaluation, decision-making process, review of diagnostic data, adjustment of management, discussion with other providers, nursing and ancillary staff involved in patient's care documentation,13 Minutes Charges/Coding Visit Charges Office Visits / Consults: [id number] OV L2 Est 10min
[2025-04-02] MEDS: Ensure Surgery 237 ML LIQUID PO (18:40)
--- NOTE | 2025-04-02 18:48 | PCM.POST.ANE ---
Anesthesia: Postop Eval I Current Vital Signs Temperature: 97.5 F Pulse Rate: 96 Blood Pressure: 145/94 Respiratory Rate: 18 Pulse Ox: 100 Oxygen Delivery Method: Room Air Assessment Airway patent: Yes Spontaneous unlabored respirations: Yes Mental status: Awake nausea: No Vomiting: No Anesthesia Complication: No Fluid Hydration Crystalloid volume administer (ml): 1,000 (see anes record) Total IV fluid infused: 1,000 Progress Note Anesthesia document: Postop Eval 1 completed: Yes
--- NOTE | 2025-04-02 18:50 | PCM.POSTANE2 ---
Anesthesia Postop Eval I Sum Postop Eval Completion status Anesthesia document: Postop Eval 1 completed: Yes Anesthesia Postop Eval I Summary Anesthesia Postop Eval I Summary: Anesthesia Postop Eval I: Assessment Summary Airway patent Yes 04/02/25 18:50 Spontaneous unlabored Yes 04/02/25 18:50 respirations Mental status Awake 04/02/25 18:50 nausea No 04/02/25 18:50 Vomiting No 04/02/25 18:50 Anesthesia Postop Eval I: Fluid Summary Crystalloid volume administer 1,000 - see anes 04/02/25 18:50 (ml) record Colloids volume administered ( ml) Blood Product volume administered (ml) Total IV fluid infused 1,000 04/02/25 18:50 Anesthesia Postop Eval I: Summary Notes Anesthesia Complication No 04/02/25 18:50 Anesthesia Complication Comment: Post-operative progress note Anesthesia: Postop Eval II Evaluation Mental status: Awake Pain Level: 0 nausea: No Vomiting: No Complications Anesthesia Complication: No
[2025-04-02] MEDS: Methocarbamol 500 MG Tablet 1000 MG PO (20:21)
[2025-04-02] MEDS: dexAMETHasone 4 MG/ML Vial IV (20:24)
[2025-04-02] MEDS: Morphine 2 MG/ML Syringe IV (21:53)
[2025-04-03 00:27] VITALS: BP 139/91; PULSE 94; RESP 16; TEMP 37.1; O2SAT 97
[2025-04-03] MEDS: HYDROcodone Bitartrate/Apap 5/325 Tablet PO ×2 (01:42→08:45)
[2025-04-03] MEDS: Methocarbamol 500 MG Tablet 1000 MG PO ×3 (02:12→13:50)
[2025-04-03] MEDS: dexAMETHasone 4 MG/ML Vial IV ×3 (02:17→13:50)
[2025-04-03 02:41] VITALS: BP 139/91; PULSE 94; RESP 16; TEMP 37.1; O2SAT 97
--- NOTE | 2025-04-03 05:16 | RAD_ITS ---
PROCEDURE: CERV SPINE 2 OR 3 VIEWS 04/03/2025 REASON FOR EXAM: S/P CERVICAL FUSION TECHNIQUE: 2 views of the cervical spine. COMPARISON: Cervical spine x-ray dated 10/12/2024. FINDINGS: Status post recent C3 through C5 anterior cervical disc fusion with intervertebral disc spacers. Anatomic alignment. Stable hardware seen extending from C5-C7. Surgical drain the remains within cervical spine. Cervical collar is also present. Normal cervical lordosis. No fracture or dislocation. RAD/Cerv Spine 2 or 3 Views IMPRESSION: Status post ACDF. Anatomic alignment. Reading Location: [id number]
[2025-04-03] MEDS: Cefazolin 2 GM in 0.9% Normal Saline (100mL Bag) 100 ML IV (05:49)
[2025-04-03] MEDS: 0.9% Saline Lock 10 ML Syringe IV ×2 (05:50→13:52)
[2025-04-03 05:56] LABS: Hematocrit 35.6 % (37-47); Hemoglobin 12.6 g/dL (12.0-15.0); Mean Corp Hgb Conc 35.4 g/dL (32-36); Mean Corpuscular Volume 84.8 fL (81-99); Mean Platelet Vol. 8.1 fl (6.2-12.0); Platelet Count 277 K/mm3 (150-450); RBC Distribution Width CV 11.6 % (11.6-14.6); RBC Distribution Width SD 35.2 fl (35.1-43.9); White Blood Count 9.5 K/mm3 (4.4-11.0)
[2025-04-03 06:17] LABS: Scan Indicated on CBC? Y/N NO
[2025-04-03 06:28] LABS: Anion Gap 12 (5-15); BUN 11 mg/dL (4-19); BUN/Creat Ratio 18.3 RATIO (10-20); Calcium,Total 9.2 mg/dL (7.6-11.0); Carbon Dioxide 23.5 mmol/L (21.0-32.0); Chloride 104 mmol/L (98-108); Creatinine, Serum 0.57 mg/dL (0.70-1.20); EST Glomerular Filtration Rate 109 (>60); Glucose 137 mg/dL (70-99); Potassium 4.4 mmol/L (3.3-5.1); Sodium Level 139 mmol/L (133-145)
[2025-04-03 07:00] VITALS: O2SAT 93
[2025-04-03] MEDS: Senna/Docusate Sodium 1 Tablet 2 TABLET PO (08:45)
[2025-04-03] MEDS: Meloxicam 15 MG Tablet PO (08:45)
[2025-04-03] MEDS: Loratadine 10 MG Tablet PO (08:45)
[2025-04-03] MEDS: Fluoxetine HCl 40 MG CAPSULE PO (08:45)
[2025-04-03 09:37] VITALS: BP 134/87; PULSE 101; RESP 18; TEMP 36.7; O2SAT 100
[2025-04-03 10:09] VITALS: O2SAT 100
--- NOTE | 2025-04-03 11:48 | CASEMGMT ---
CRISTIANE RODRIGUEZ Assessment Face to Face with patient for initial transition planning/care coordination assessment. CRISTIANE RODRIGUEZ introduced self and role at [facility], pt voices understanding. Pt is A&Ox4 and is resting comfortably in the chair and is calm. Pt's at bedside. Care providers, pharmacy, and demographics verified. Admitting dx: Cervical disc Fusion LACE Strata: 1 PCP: Cate Genao Specialists: Mateus (Ortho), Ac (PM) Preferred Pharmacy: [facility] Insurance: [employer] Prescription Benefit: Yes LNOK: Juan (H) Living Arrangements: Pt lives with her , adult daughter, and 3 month old GD in a 2 story home with a basement with a FFSU and 3 steps to enter with bilateral handrails ADLs/IADLs: Independent. 6-Click score is 24. Pt was cleared by PT, see notes. Transportation: Self, . Denies concerns DME: C-Collar, FWW, Cane, Shower chair, grab bars. HHC/SNF: Denies hx or needs. Pt states that she has been to OP therapy through [place] in the past Pt?s goal: Home Plan: Home with pt's SO and to follow up with Dr. Ignacio on 04/17 as scheduled and potentially start OP therapy subsequently as warranted. Pt states that she feels safe with this plan and denies further questions, concerns, or DC needs. Report given to DAMION SAUER CM. Ginger Ayala RN, CM
--- NOTE | 2025-04-03 13:49 | PN.HOSP_ITS ---
Reason for Visit Reason for Visit: Diagnoses Disease of spinal cord, unspecified (04/02/25) Radiculopathy, cervical region (04/02/25) Encounter for other preprocedural examination (04/02/25) Subjective Subjective Patient up walking around room, patient reports overall feeling well with no acute complaints Objective Data Objective Data Vital Signs: Vital Signs Temp Pulse Resp BP Pulse Ox O2 Del Method O2 Flow Rate 98.1 F 101 H 18 134/87 H 100 Room Air 4 04/03/25 09:37 04/03/25 09:37 04/03/25 09:37 04/03/25 09:37 04/03/25 10:09 04/03/25 09:37 04/02/25 18:26 Oxygen Flow Rate (L/min) 4 Oxygen Delivery Method Room Air Weight: 79.197 kg Body Mass Index (BMI) 35.2 Intake & Output: Intake and Output for Last 24 Hours 04/01/25 04/02/25 04/03/25 23:59 23:59 23:59 Intake Total 2398.75 / 2398.75 110 / 110 Balance 2398.75 / 2398.75 110 / 110 Lab / Micro Data 04/03/25 05:34 04/03/25 05:34 Labs: Laboratory Results - last 24 hr 04/03/25 05:34: WBC 9.5, RBC 4.20, Hgb 12.6, Hct 35.6 L, MCV 84.8, MCH 30.0, MCHC 35.4, RDW Std Deviation 35.2, RDW Coeff of Raven 11.6, Plt Count 277, MPV 8.1, Sodium 139, Potassium 4.4, Chloride 104, Carbon Dioxide 23.5, Anion Gap 12, BUN 11, Creatinine 0.57 L, Estim Creat Clear Calc 107.50, Est GFR (MDRD) Non-Af 109, BUN/Creatinine Ratio 18.3, Glucose 137 H, Calcium 9.2 Micro: Microbiology 03/27/25 08:50 Swab (Method) Nasal Screen MRSA/MSSA - Final Radiography Diagnostic Testing: Radiology Impression Cervical Spine X-Ray 04/02/25 13:55 IMPRESSION: Fluoroscopy during anterior cervical disc fusion with intervertebral disc spacers as above. Reading Location: [facility] Cervical Spine X-Ray 04/03/25 05:16 IMPRESSION: Status post ACDF. Anatomic alignment. Reading Location: [facility] Physical Exam Narrative General: Alert, oriented, no apparent distress HEENT: Atraumatic, normocephalic Eyes: extraocular movements grossly intact Neck: Supple Respiratory: normal respiratory effort Cardiovascular: no edema appreciated GI: nondistended Extremities: Moving all extremities Neuro: No overt focal neurological deficits Psych: Cooperative Assessment & Plan Assessment/Plan (1) Cervical myelopathy with cervical radiculopathy: PLAN: Plan # Anxiety -Continue home medications -04/03: Patient doing well, would like to go home #Obesity - On daily metformin, will hold postoperatively while admitted, can resume on discharge -04/03: Metformin held, can consider resuming on discharge as previously mentioned # 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 Ignacio 04/02/25 - Postoperative/pain management per primary -PT/OT -04/03: Management per primary #DVT ppx: Timing and agent at discretion of primary Alisia Madison MD Charges/Coding Visit Charges Office Visits / Consults: 71920 OV L1 Est
[2025-04-03 14:26] VITALS: BP 144/79; PULSE 93; RESP 18; TEMP 36.6; O2SAT 98
--- NOTE | 2025-04-03 15:16 | PHA.DC.MC.R ---
Pharmacy [facility] has performed discharge medication reconciliation and counseling for this patient. 1. NORCO 5/325MG 1T PO Q6H PRN PAIN 2. MELOXICAM 15MG PO DAILY 3. METHOCARBAMOL 750MG PO TID PRN MUSCLE SPASMS 4. SENNA/DOCUSATE 2T PO BID PRN CONSTIPATION The patient's discharge medication list was reviewed for discrepancies and discrepancies were resolved. The patient was counseled on the following discharge medications and changes in medications for homegoing were reviewed. The Reason for Use, instructions for use, and potential side effects were reviewed for all new medications. The patient's questions regarding all of their medications were answered. The patient was able to verbally demonstrate an understanding of their discharge medications. Medications at Discharge Home Medications cetirizine 10 mg tablet (Zyrtec) 10 mg PO DAILY ALLERGIES 03/07/18 dicyclomine 10 mg capsule 10 mg PO BID PAIN 12/14/24 fluoxetine 40 mg capsule 40 mg PO DAILY 04/03/25 hydrocodone-acetaminophen 5-325mg 5mg-325mg 1 tab PO Q6H PRN pain 7 days #28 tabs 04/03/25 meloxicam 15 mg tablet 15 mg PO DAILY #30 tabs 04/03/25 metformin 500 mg tablet,extended release 24 hr 1,000 mg PO DAILY 04/03/25 methocarbamol 500 mg tablet 750 mg (1.5 x 500 mg) PO TID PRN pain/spasms #60 tabs 04/03/25 semaglutide 1 mg/dose (4 mg/3 mL) subcutaneous pen injector (Ozempic) 1 mg subcut TH@1000 weight loss 04/03/25 sennosides 8.6 mg-docusate sodium 50 mg tablet (Stimulant Laxative Plus) 2 tab PO BID PRN constipation #30 tabs 04/03/25
--- NOTE | 2025-04-03 15:59 | PCM.PN.ORT ---
Subjective Subjective Postop day 1 C3-5 ACDF. Patient is doing well postoperatively with her pain well-managed. The patient has been up and walking and has been cleared for home discharge from therapy. Patient denies any significant pain. Patient denies any dysphagia issues. Nursing did not need to change any dressings overnight. Seen with Dr. Ignacio. Objective Data Objective Data Vital Signs: Vital Signs Temp Pulse Resp BP Pulse Ox O2 Del Method O2 Flow Rate 97.8 F 93 18 144/79 H 98 Room Air 4 04/03/25 14:26 04/03/25 14:26 04/03/25 14:04/03/25 14:04/03/25 14:04/03/25 14:04/02/25 18:26 Oxygen Flow Rate (L/min) 4 Oxygen Delivery Method Room Air Weight: 174 lb 9.6 oz Body Mass Index (BMI) 35.2 Intake & Output: Intake and Output for Last 24 Hours 04/01/25 04/02/25 04/03/25 23:59 23:59 23:59 Intake Total 2398.75 / 2398.75 357.25 / 357.25 Balance 2398.75 / 2398.75 357.25 / 357.25 Lab / Micro Data 04/03/25 05:34 04/03/25 05:34 Labs: Laboratory Results - last 24 hr 04/03/25 05:34: WBC 9.5, RBC 4.20, Hgb 12.6, Hct 35.6 L, MCV 84.8, MCH 30.0, MCHC 35.4, RDW Std Deviation 35.2, RDW Coeff of Raven 11.6, Plt Count 277, MPV 8.1, Sodium 139, Potassium 4.4, Chloride 104, Carbon Dioxide 23.5, Anion Gap 12, BUN 11, Creatinine 0.57 L, Estim Creat Clear Calc 107.50, Est GFR (MDRD) Non-Af 109, BUN/Creatinine Ratio 18.3, Glucose 137 H, Calcium 9.2 Micro: Microbiology 03/27/25 08:50 Swab (Method) Nasal Screen MRSA/MSSA - Final Radiography Diagnostic Testing: Radiology Impression Cervical Spine X-Ray 04/02/25 13:55 IMPRESSION: Fluoroscopy during anterior cervical disc fusion with intervertebral disc spacers as above. Reading Location: [facility] Cervical Spine X-Ray 04/03/25 05:16 IMPRESSION: Status post ACDF. Anatomic alignment. Reading Location: [id number] Physical Exam Narrative Neurological examination of the upper extremity shows 5X5 power. Normal sensation across all dermatomes. Old surgical dressing shows saturated gauze. Drain removed. Tegaderm and gauze applied over the incision. Const alert, oriented x3 and no apparent distress Assessment & Plan Assessment/Plan (1) S/P cervical spinal fusion: PLAN: Plan Postop day 1 C3-5 ACDF. Patient had a prior C5-7 ACDF. Obtained and reviewed x-rays today which show hardware and bone graft in good position. PT OT cleared for discharge. No dysphagia. Reviewed proper wear of the cervical collar and how to adjust. Educated and reviewed on proper use of the incentive spirometer. Home meds include hydrocodone/acetaminophen, meloxicam, methocarbamol, senna. OARRS reviewed. She will follow-up in the clinic in 2 weeks. Patient is in agreement.
== END 2025-04-03 15:18 | disposition home or self-care (01) ==
PROVIDERS: Anesthesiology; Student in an Organized Health Care Education/Training Program; Admitting Provider Orthopaedic Surgery Orthopaedic Surgery of the Spine; PCP Family Medicine; Referring Provider Orthopaedic Surgery Orthopaedic Surgery of the Spine; Visit Provider Orthopaedic Surgery Orthopaedic Surgery of the Spine
PROC: (CPT 22551; principal; 2025-04-02 12:45)
DX: M50.01 Cervical disc disorder with myelopathy, high cervical region (principal); Z98.1 Arthrodesis status; I10 Essential (primary) hypertension; M50.11 Cervical disc disorder with radiculopathy, high cervical region; M79.7 Fibromyalgia; M48.02 Spinal stenosis, cervical region; E66.9 Obesity, unspecified; F41.9 Anxiety disorder, unspecified; M54.12 Radiculopathy, cervical region; Z79.899 Other long term (current) drug therapy; Z68.35 Body mass index [BMI] 35.0-35.9, adult
CPT/HCPCS: 22551; 22552; 20680; 20931; 22845; 00670; 36415; 72040; 76000; 80048; 82962; 83735; 85025; 85027; 86703; 86706; 86708; 86803; 86850; 86900; 86901; 87081; 93005; 96365; 96366; 96375; 96376; 97162; 97166; 99221; C1713; A4216; G0378; J3475

== ENCOUNTER → 2025-08-30 | Outpatient (CLI) | payer OTHER, SELFPAY | END | disposition home or self-care (01) | LOC: OPMRI 15:21 | PROVIDERS: PCP Family Medicine; Referring Provider Student in an Organized Health Care Education/Training Program; Visit Provider Student in an Organized Health Care Education/Training Program | DX: G95.9 Disease of spinal cord, unspecified (principal); M54.12 Radiculopathy, cervical region; Z98.1 Arthrodesis status | CPT/HCPCS: 72141 ==

== ENCOUNTER → 2025-09-21 | Outpatient (CLI) | payer OTHER, SELFPAY | END | disposition home or self-care (01) | LOC: CT 14:44 | PROVIDERS: PCP Family Medicine; Referring Provider Student in an Organized Health Care Education/Training Program; Visit Provider Student in an Organized Health Care Education/Training Program | DX: S12.9XXA Fracture of neck, unspecified, initial encounter (principal) | CPT/HCPCS: 72125 ==